=== PATIENT | male | born 1985 | race American Indian/Alaskan Native ===

== ENCOUNTER 2018-12-14 10:41 | Emergency (ER) | payer SELFPAY ==
[2018-12-14] MEDS ORDERED: IBUPROFEN 800 MG TAB PO ONE (11:15)
--- NOTE | 2018-12-14 11:16 | Emergency Department Report ---
ED Back Pain/Injury HPI - General Chief Complaint: Extremity Injury, Lower Stated Complaint: RT KNEE POPPED/PAIN Time Seen by Provider: 12/14/18 11:15 Source: patient Limitations: No Limitations - History of Present Illness Initial Comments: 34 YO AA MALE COMES TO ER FROM GYM. HE WAS SQUATTING THEN LUNGED AND FELT A POP IN KNEE. HAD SEVERE PAIN SO COMES TO ER. PT HAS HX ACL/MCL SURGERY ON KNEE. 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; NOT BEARING WEIGHT Complaint: other -: Sudden Similar Symptoms Previously: No Place: home Radiation: none Severity: severe Consistency: constant Improves With: immobilization Worsens With: movement Context: while lifting Associated Symptoms: denies other symptoms - Related Data Previous Rx's Medication Instructions Recorded Last Taken Type Ibuprofen [Motrin] 800 mg PO Q8HR PRN #30 tablet 12/14/18 Unknown Rx Allergies Allergy/AdvReac Type Severity Reaction Status Date / Time No Known Allergies Allergy Unverified 12/14/18 10:48 ED Review of Systems ROS: Stated complaint: RT KNEE POPPED/PAIN Other details as noted in HPI Comment: All other systems reviewed and negative ED Past Medical Hx - Past Medical History prior KNEE SURG - Social History Smoking Status: Never Smoker Alcohol use: rarely Drug use: none ED Back Pain Physical Exam - Exam General: Vital signs noted. No distress. Alert and acting appropriately. mild gen swelling r knee ankle full ROM hip full ROM dp plus 2 bilateral no distal edema Back/Abdomen: No Abdominal Tenderness, No Perithoracic Tenderness, No Perilumbar Tenderness, No Sacroiliac Tenderness, No Flank Tenderness, No Straight Leg Raise Pain Neuro: Yes Normal Sensation, Yes Normal DTR's, No Motor Weakness, No Normal Gait ED Course Vital Signs 12/14/18 11:00 Temperature 98 F Pulse Rate 93 H Respiratory 16 Rate Blood Pressure 143/91 [Left] O2 Sat by Pulse 99 Oximetry Ed Back Pain Tests - Tests Tests: Normal X Rays ED Medical Decision Making - Radiology Data Radiology results: report reviewed, image reviewed - Medical Decision Making xray noted pt unable to bear weight knee immob/crutches medicated for pain GOT NAUSEATED FROM [facility] GIVEN dc home with ortho follow up. DISCUSSED NEED FOR MRI WITH PT. HE VERBALIZES UNDERSTANDING Vital Signs 12/14/18 11:00 Temperature 98 F Pulse Rate 93 H Respiratory 16 Rate Blood Pressure 143/91 [Left] O2 Sat by Pulse 99 Oximetry - Differential Diagnosis soft tissue v meniscus injury Critical care attestation.: If time is entered above; I have spent that time in minutes in the direct care of this critically ill patient, excluding procedure time. ED Disposition Clinical Impression: Knee pain Disposition: DC- TO HOME OR SELFCARE Is pt being admited?: No Does the pt Need Aspirin: No Condition: Stable Instructions: Knee Pain (ED) Additional Instructions: ice immobilize crutches motrin for pain non weight bearing follow up with Dr Wilson or ortho next week for further tests Prescriptions: Ibuprofen [Motrin] 800 mg PO Q8HR PRN #30 tablet PRN Reason: Pain, Moderate (4-6) Referrals: BETY WILSON MD [Staff Physician] - 3-5 Days Time of Disposition: 12:14
--- NOTE | 2018-12-14 12:09 | XRay Report ---
RIGHT KNEE 3 VIEWS INDICATION / CLINICAL INFORMATION: PAIN R KNEE COMPARISON: None available. FINDINGS: BONES / JOINT(S): No acute fracture or subluxation. No significant arthritis. SOFT TISSUES: No significant abnormality. ADDITIONAL FINDINGS: None. Signer Name: Rupert Galvan MD Signed: 12/14/2018 12:05 PM Workstation Name: [id number]
[2018-12-14] MEDS ORDERED: HYDROcodone/ACETAMINOPHEN 10-325MG TAB PO ONE (12:11)
[2018-12-14] MEDS ORDERED: ONDANSETRON 4 MG ODT TAB PO ONE (12:44)
[2018-12-14] MEDS ORDERED: ONDANSETRON 4 MG ODT TAB ONE (12:47)
[2018-12-14 13:02] VITALS: BP 140/90
== END 2018-12-14 13:00 | disposition home or self-care (01) ==
LOC: ED 10:41
DX: M25.561 Pain in right knee (principal)
CPT/HCPCS: Q0162